=== PATIENT | female | born 1940 | race Hispanic/Latino ===

== ENCOUNTER 2021-12-31 13:39 | Emergency (ER) | payer OTHER ==
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
[2021-12-31 14:01] VITALS: BP 160/82
== END 2021-12-31 14:05 | disposition home or self-care (01) ==
LOC: ED 13:39
DX: S20.219A Contusion of unspecified front wall of thorax, initial encounter (principal); S10.93XA Contusion of unspecified part of neck, initial encounter; I10 Essential (primary) hypertension; V89.2XXA Person injured in unspecified motor-vehicle accident, traffic, initial encounter; Y93.89 Activity, other specified; Y92.89 Other specified places as the place of occurrence of the external cause; Y99.8 Other external cause status
CPT/HCPCS: 99283